=== PATIENT | male | born 1990 | race African-American/Black ===

== ENCOUNTER 2017-02-01 17:29 | Emergency (ER) | payer OTHER ==
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
== END 2017-02-01 20:35 | disposition home or self-care (01) ==
LOC: CED 17:29
DX: M25.512 Pain in left shoulder (principal)
CPT/HCPCS: 73030; 99283